=== PATIENT | female | born 1955 | race Caucasian/White ===

== ENCOUNTER → 2016-11-04 | Outpatient (CLI) | payer OTHER ==
[~2016-11-04] MED LIST: ALPRAZOLAM PO; AMITRYPTYLINE PO; BACLOFEN10 MG PO; BACTRIM DS TABL1 TAB PO; CELEBREX PO; HUMERA; PROZAC PO; ULTRAM PO
--- NOTE | ~2016-11-04 | MY11 ---
[facility] A Service of [facility] RADIOLOGY TEXT RESULTS PATIENT: CAMMIE ABDI LOCATION: [facility] : 51 UNIT #: [id number] AGE: [address]: MUSHTAQ WATSON MD SEX: F ORDER DR: [id number] [address] [id number] O MR#: [id number] Acc #: [id number] NAME: CAMMIE ABDI : 1955 SEX: F STUDY DATE/TIME: 11/04/2016 10:45 UNIT: [facility] ROOM: STUDY DESCRIPTION: MY Mammogram Screening Dig Vin Attending Physician: Mushtaq Watson M.D. Referring Physician: Mushtaq Watson M.D. Ordering Physician: Mushtaq Watson M.D. Primary Care Physician: Mushtaq Watson M.D. MEDICAL IMAGING REPORT This report is preliminary unless electronic signature is present EXAM Digital screening mammogram with CAD INDICATIONS Routine screening PROCEDURE Bilateral CC and MLO views obtained on a digital mammography unit. FDA-approved CAD device was utilized. COMPARISON 05/19/2014 FINDINGS Scattered fibroglandular density. No dominant mass or suspicious calcification. IMPRESSION Negative screening mammogram. Screen interval in one year suggested. Patients over the age of 40 are entered into a reminder system with target due date for the next mammogram. A result letter will also be sent to the patient. BIRADS: 1 Negative Dictated by... Jay Chow M.D. THIS IS AN ELECTRONICALLY VERIFIED REPORT Jay Chow M.D. at 11/05/2016 7:08 AM YULIYA/karen [facility] A Service of [facility] RADIOLOGY TEXT RESULTS PATIENT: CAMMIE ABDI LOCATION: [facility] : 51 UNIT #: [id number] AGE: [address]: MUSHTAQ WATSON MD SEX: F ORDER DR: TD: 11/04/2016 11:59 JOB #: [id number] MEDICAL IMAGING REPORT COPY
== END | disposition home or self-care (01) ==
LOC: CWCC 10:31
DX: Z12.31 Encounter for screening mammogram for malignant neoplasm of breast (principal)
CPT/HCPCS: G0202

== ENCOUNTER → 2017-01-06 | Outpatient (CLI) | payer OTHER ==
--- NOTE | ~2017-01-06 | CR181 ---
[facility] A Service of [facility] RADIOLOGY TEXT RESULTS PATIENT: CAMMIE ABDI LOCATION: [facility] : 51 UNIT #: [id number] AGE: [address]: MUSHTAQ WATSON MD SEX: F ORDER DR: [id number] [place] [id number] O MR#: [id number] Acc #: [id number] NAME: CAMMIE ABDI : 1955 SEX: F STUDY DATE/TIME: 01/06/2017 14:48 UNIT: [facility] ROOM: STUDY DESCRIPTION: CR Lumbar Spine 2 or 3 Views Attending Physician: Mushtaq Watson M.D. Referring Physician: Mushtaq Watson M.D. Ordering Physician: Mushtaq Watson M.D. Primary Care Physician: Mushtaq Watson M.D. MEDICAL IMAGING REPORT This report is preliminary unless electronic signature is present. EXAM Lumbar spine, 3 views, 01/06/2017. CLINICAL HISTORY Low back pain, chronic but worse for 1 week. FINDINGS There is a reversal of lordosis. There is discogenic change, most prominent at 1-2, but there is no fracture or acute abnormality. There is a slight scoliosis. Dictated by... Nitesh Burns M.D. THIS IS AN ELECTRONICALLY VERIFIED REPORT Nitesh Burns M.D. at 01/12/2017 10:40 AM RENETTA/em TD: 01/07/2017 10:33 JOB #: [id number] MEDICAL IMAGING REPORT Page 1 of 1
== END | disposition home or self-care (01) ==
LOC: SRAD 14:42
DX: M54.30 Sciatica, unspecified side (principal)
CPT/HCPCS: 72100